=== PATIENT | male | born 1965 | race Caucasian/White ===

== ENCOUNTER 2025-05-06 17:58 | Emergency (ER) | payer OTHER, SELFPAY ==
[2025-05-06 18:01] VITALS: BP 149/88
--- NOTE | 2025-05-06 20:25 | ED.GENMED ---
History of Present Illness
General
Chief Complaint: Back Pain
Time Seen by Provider: 05/06/25 20:23
History of Present Illness
History of Present Illness:
TIME OF INITIAL EVALUATION
- 8:25 PM
REVIEW OF OLD RECORDS
- The patient has history of high blood pressure and hyperlipidemia. I reviewed records and the patient had partial medial right meniscectomy with Dr. Anguiano in 2008.
CHIEF COMPLAINT(S)
Lower back pain.
HISTORY OF PRESENT ILLNESS
The patient is a 60-year-old male presenting with lower back pain, which started the morning after mowing the lawn with a push mower. The pain is described as a seven out of ten in severity, exacerbated by movement, and has persisted for several
days. The patient reports a sharp, radiating pain typical of sciatica, extending to the upper thigh but not beyond the knee. There is a positive straight-leg raise test. The patient denies any recent direct trauma to the back, although he has a
history of a lower back fracture at age 17 from being struck by an elevator door. He previously experienced a similar sciatica episode 10 years ago, which resolved spontaneously. No bowel or bladder dysfunction was reported, and there are no signs
of numbness or weakness. The patient denies any history of cancer.
PHYSICAL EXAM
- Positive straight-leg raise test with pain extending to the upper thigh.
- Sensation intact to light touch.
-General: Well appearing but appears rather uncomfortable
-HEENT: Moist oral mucosa
-Neurologic: Excellent strength all extremities, no obvious coordination deficits, excellent strength in an L5 and S1 distribution at the left lower extremity
-Psychiatric: Appropriate mental status, normal insight and judgement
-Extremities: Nontender, no edema, moves all extremities equally
-Skin: No rash, no lesions
PLAN
Administer intramuscular ketorolac for immediate pain relief.
Prescribe a course of oral steroids (e.g., methylprednisolone) for inflammation.
Offer a prescription for a short course of oxycodone/acetaminophen (Percocet) as needed for severe pain, with the patients refusal noted.
Recommend follow-up with the primary care physician for further management, including possible physical therapy.
Advise against simultaneous oral NSAIDs and steroids due to potential gastric irritation.
DIFFERENTIAL DIAGNOSIS
The Differential Diagnosis includes, in no particular order and is not limited to:
- Lumbar radiculopathy (sciatica)
- Lumbar strain
- Herniated disc
- Degenerative disc disease
- Spinal stenosis
- Facet joint syndrome
- Sacroiliac joint dysfunction
- Osteoarthritis
- Skeletal metastasis (less likely due to the absence of cancer history)
- Peripheral neuropathy
RADIOLOGY
- No clear indication for imaging at this time, no direct trauma and no back pain 'red flags'
EKG
- Not indicated
LABS
- White count and hemoglobin normal, chemistry unremarkable
UPDATE
- Patient was given Toradol and steroids as symptoms are consistent with sciatica on the left side
SUMMARY OF ENCOUNTER
The patient presented to the emergency department with lower back pain described as radiating sciatica pain that started after physical activity. The management in the emergency department included the administration of intramuscular ketorolac for
immediate pain relief and a dose of a narcotic for severe pain. A course of oral steroids was discussed and prescribed for inflammation management. The patients disposition involved discharge with instructions for follow-up care and symptom
management at home, including the use of ice for inflammation.
DISPOSITION
Discharged with a prescription for steroids and instructions for follow-up with a primary care physician.
EMERGENCY TREATMENTS ADMINISTERED
Intramuscular ketorolac was administered for immediate pain relief, and a narcotic was given for severe pain.
PLAN
Prescribed a course of oral steroids to start following morning and offered a prescription for a short course of oxycodone/acetaminophen for severe pain, though it was declined. Discussed the potential benefits of physical therapy and using ice
versus moist heat.
MEDICATION RECONCILIATION
Administered in ED: Ketorolac. Prescribed: Oral steroids (methylprednisolone).
MEDICAL DECISION MAKING
1. Number & Complexity of Problems: Chronic conditions affecting care include history of lower back sciatica.
2. Risk: Consideration of admission was not indicated due to symptom control and stable vitals. Outpatient management was chosen with instruction for follow-up reliability.
PATIENT EDUCATION AND COUNSELING
Instructed on the use of ice for inflammation, the importance of follow-up with primary care, potential benefits of physical therapy, and starting prescribed oral steroids. Advised on alternating ice and heat based on personal relief.
FOLLOW-UP INSTRUCTIONS
Follow up with the primary care physician for further management and possible physical therapy. Use the prescribed medications as directed for pain and inflammation. Use ice for inflammation relief as necessary.
PATHOLOGIES TO CONSIDER
- Lumbar radiculopathy (sciatica)
- Herniated disc
- Lumbar strain
Patient was also given Dilaudid. Overall improved on reassessment prior to discharge. Suspect sciatica. PMD follow-up.
Phy Exam
Physical Exam
Physical Exam:
See HPI
Course
Orders/Labs/Results
Orders:
Orders
05/06/25 20:31
Complete Blood Count/With Diff Urgent
Comprehensive Metabolic Panel Urgent
05/06/25 20:42
Ketorolac [Toradol] 15 mg .ROUTE .STK-MED ONE
05/06/25 20:43
Ketorolac [Toradol] 15 mg IV NOW STA
05/06/25 20:47
MethylPREDNISolone PF [Solu-Medrol Pf] 125 mg .ROUTE .STK-MED ONE
05/06/25 20:48
MethylPREDNISolone PF [Solu-Medrol Pf] 125 mg IV NOW STA
05/06/25 22:00
HYDROmorphone [Dilaudid] 1 mg .ROUTE .STK-MED ONE
Ondansetron Injectable [Zofran] 4 mg .ROUTE .STK-MED ONE
05/06/25 22:01
Ondansetron Injectable [Zofran] 4 mg IV NOW STA
05/06/25 22:02
HYDROmorphone [Dilaudid] 1 mg IV NOW STA
Abnormal Lab Results
05/06/25
20:31
Absolute Monos (auto) 0.9 H 10^3/uL
(0.1-0.6)
Monocytes % 10.2 H %
(1.7-9.3)
Chloride 109 H mmol/L
(98-107)
Glucose 108 H mg/dl
(70-99)
05/06/25 20:31
05/06/25 20:31
Vital Signs
Initial and Last Documented VS:
Initial Vital Signs
Temp Pulse Resp BP Pulse Ox
36.7 C 77 18 149/88 99
05/06/25 18:01 05/06/25 18:01 05/06/25 18:01 05/06/25 18:01 05/06/25 18:01
Last Documented Vital Signs
Temp Pulse Resp BP Pulse Ox
36.7 C 77 18 149/88 99
05/06/25 18:01 05/06/25 18:01 05/06/25 18:01 05/06/25 18:01 05/06/25 20:26
*Pulse Oximetry
SaO2: 99
Oxygen Mode of Delivery: Room air
Patient hypoxic: no
*Critical Care Note
Total Time (30-74mins, 75-104mins- exclusive of procedures): Not Applicable
ED Attending Note
-
Portions of this chart may have been created with voice recognition software.� Occasional wrong word or��sound alike� substitutions may have occurred due to the inherent limitations of voice recognition software.
Discharge Plan
Departure
Patient Disposition: Home (Routine Discharge)
Date of Disposition: 05/06/25
Time of Disposition: 23:05
Patient with high blood pressure during this ER visit?: Yes
Discharge Problem:
Sciatica
Instructions: Sciatica (DC), BLOOD PRESSURE
Prescriptions:
New
oxycodone-acetaminophen [Endocet] 5-325 mg tablet
1 - 2 tab PO Q6H PRN (Reason: Pain) Qty: 14 0RF
prednisone 50 mg tablet
50 mg PO DAILY Qty: 5 0RF
Referrals:
William Eduardo MD [Family Provider, Internal Medicine]
Activity Restrictions/Additional Instructions:
Follow-up with your primary care doctor. Return here if worse. Basic blood work is normal.
Interventions
Interventions:
*Risk Screen - Suicide Last Done: 05/06/25 18:01
*General Assessment Last Done: 05/06/25 18:01
*Neglect/Abuse Screening Last Done: 05/06/25 18:01
*ED- Fall Risk Assessment Last Done: 05/06/25 20:32
*ED COVID-19 Vaccine History Last Done: 05/06/25 20:32
ED-Musculoskeletal Assessment Last Done: 05/06/25 20:59
Discharge Date and Time
Print Language: [place]
[2025-05-06 20:41] LABS: % Basophils 1.4 % (0-2); % Eosinophils 3.7 % (0-6); % Immature Granulocytes 0.2 % (0-0.5); % Lymphocytes 29.4 % (20.5-51.1); % Monocytes 10.2 % (1.7-9.3); % Neutrophils 55.1 % (42.2-75.2); Absolute Basophils 0.1 10^3/uL (0-0.2); Absolute Eosinophils 0.3 10^3/uL (0-0.7); Absolute Lymphocytes 2.5 10^3/uL (1.2-3.4); Absolute Monocytes 0.9 10^3/uL (0.1-0.6); Absolute Neutrophils 4.7 10^3/uL (1.4-6.5); Hematocrit 44.5 % (39.0-52.0); Hemoglobin 15.1 g/dL (13.0-18.0); Mean Corp Hgb Conc. 33.9 g/dL (33.0-37.0); Mean Corpuscular Volume 91.4 fL (80.0-94.0); Mean Platelet Volume 9.2 fL (7.4-10.4); Nucleated Red Blood Cells % 0 % (-); Platelet Count 279 10^3/uL (130-400); Red Blood Cell Count 4.87 10^6/uL (4.70-6.10); Red Cell Dist. Width 12.6 % (11.5-14.5); White Blood Cell Count 8.5 10^3/uL (4.8-10.8)
[2025-05-06] MEDS: TORADOL 15 MG IV (20:43)
[2025-05-06] MEDS: SOLU-MEDROL PF 125 MG IV (20:48)
[2025-05-06 21:03] LABS: ALT (SGPT) 28 U/L (0-50); AST (SGOT) 28 U/L (17-59); Albumin 4.7 g/dl (3.5-5.0); Alkaline Phosphatase 83 U/L (38-126); Blood Urea Nitrogen 19 mg/dl (9-20); Calcium 9.5 mg/dl (8.4-10.2); Carbon Dioxide 26 mmol/L (22-30); Chloride 109 mmol/L (98-107); Glucose 108 mg/dl (70-99); Potassium 4.2 mmol/L (3.5-5.1); Sodium 140 mmol/L (135-145); Total Bilirubin 0.6 mg/dl (0.2-1.3); Total Protein 7.4 g/dl (6.3-8.2); eGFR > 60.00
[2025-05-06] MEDS: ZOFRAN 4 MG IV (22:02)
[2025-05-06] MEDS: DILAUDID 1 MG IV (22:02)
[2025-05-06 23:20] VITALS: BP 105/88
== END 2025-05-06 23:30 | disposition home or self-care (01) ==
LOC: EMR 17:58
PROVIDERS: EMERGENCY PHYSICIAN Emergency Medicine; FAMILY PHYSICIAN Internal Medicine
DX: M54.40 Lumbago with sciatica, unspecified side (principal); E78.5 Hyperlipidemia, unspecified; I10 Essential (primary) hypertension
CPT/HCPCS: 99284; 96374; 96375; 80053; 85025

== ENCOUNTER → 2025-05-09 08:26 | Outpatient (REF) | payer OTHER, SELFPAY | LOC: HWRAD 08:26 | PROVIDERS: ATTENDING PHYSICIAN Internal Medicine | DX: M54.16 Radiculopathy, lumbar region (principal); M25.552 Pain in left hip; R10.32 Left lower quadrant pain | CPT/HCPCS: 72114; 73502 ==